=== PATIENT | male | born 1955 | race Caucasian/White ===

== ENCOUNTER 2022-12-15 05:55 | Day surgery (SDC) | payer MEDICARE ==
[2022-12-15] MEDS ORDERED: Lactated Ringers 1,000 ML IV SCH (06:30)
[2022-12-15] MEDS ORDERED: Versed 2 MG/2 ML Injection ONE (07:19)
[2022-12-15] MEDS ORDERED: Xylocaine-Mpf 2% 5 Ml Vial ONE (07:19)
[2022-12-15] MEDS ORDERED: DIPRIVAN 200 MG/20 ML IV ONE (07:19)
--- NOTE | 2022-12-15 08:21 | OP ---
SURGERY DATE/TIME: 12/15/2022 0731 PREOPERATIVE DIAGNOSIS: Screening exam. POSTOPERATIVE DIAGNOSIS: Multiple polyps in the cecum. PROCEDURE: Colonoscopy with hot polypectomy snare retrieval and removal of the polyps. SURGEON: Dr. Estrada. ANESTHESIA: MAC. Medications given by anesthesia department. HISTORY: The patient is a 67-year-old white male patient presenting now for screening colonoscopy. He was appraised of the risks of the procedure including the risk of perforation, phlebitis, untoward reaction to medication, bleeding and missed lesions. The patient verbalized his understanding and desired to have the procedure performed. DESCRIPTION OF PROCEDURE: The patient was given the medications by the anesthesia department. He had continuous pulse oximetry, ECG monitoring and intermittent blood pressure monitoring during the examination. He was placed in the left lateral decubitus position. A digital rectal examination was performed and revealed normal anal sphincter tone, no masses and a normal prostate. The flexible Olympus pediatric colonoscope was used to intubate the rectum. 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 They were removed using polyps with the snare and electrocautery for removal of the polyps and retrieval for pathologic evaluation. No other mucosal lesions were encountered. The scope was removed from the patient who tolerated the procedure well and was sent back to OP recovery in good condition. The prep was noted to be fair to good.
[2022-12-15 08:47] VITALS: BP 157/92; PULSE 52; O2SAT 99
== END 2022-12-15 08:50 | disposition home or self-care (01) ==
LOC: SDC 05:55
PROVIDERS: ATTEND Family Medicine
DX: Z12.11 Encounter for screening for malignant neoplasm of colon (principal); D12.0 Benign neoplasm of cecum; D12.3 Benign neoplasm of transverse colon
CPT/HCPCS: J2250; J2704

== ENCOUNTER 2023-12-31 05:51 | Day surgery (SDC) | payer MEDICARE ==
[2023-12-31 06:15] VITALS: RESP 16
[2023-12-31] MEDS: Lactated Ringers 1,000 ML IV SCH (06:46)
[2023-12-31] MEDS ORDERED: Xylocaine-Mpf 2% 5 Ml Vial ONE (07:58)
[2023-12-31] MEDS ORDERED: DIPRIVAN 200 MG/20 ML IV ONE ×2 (07:58→08:13)
[2023-12-31] MEDS ORDERED: ATROPINE SULFATE 1MG ONE (08:06)
--- NOTE | 2023-12-31 08:34 | OP ---
SURGERY DATE/TIME: 12/31/2023 0756 PREOPERATIVE DIAGNOSIS: History of colon polyps. POSTOPERATIVE DIAGNOSIS: Normal colon. PROCEDURE: Colonoscopy. SURGEON: Dr. Estrada. ANESTHESIA: Medications given by anesthesia department. HISTORY: The patient is a 68-year-old white male patient presenting now for evaluation due to having had multiple polyps on most recent examination. The patient was felt the need to have endoscopic evaluation. He was appraised of the risks of the procedure including the risk of perforation, phlebitis, untoward reaction to medication, bleeding and missed lesions. The patient verbalized his understanding and desired to have the procedure performed. DESCRIPTION OF PROCEDURE: The patient was given the medications by the anesthesia department. He had continuous pulse oximetry, ECG monitoring and intermittent blood pressure monitoring during the examination. He was placed in the left lateral decubitus position. A digital rectal examination was performed and revealed normal anal sphincter tone, no masses and a normal prostate. The flexible Olympus pediatric colonoscope was used to intubate the rectum. A view of the colon was developed sequentially to the cecum. Upon insertion and withdrawal, including a retroflex view in the rectum, no mucosal lesions were encountered. The scope was removed from the patient who tolerated the procedure well and was sent back to OP recovery in good condition. The prep was noted to be fair to good.
[2023-12-31 09:00] VITALS: BP 133/79; PULSE 68; TEMP 96.7; O2SAT 98
== END 2023-12-31 09:14 | disposition home or self-care (01) ==
LOC: SDC 05:51
PROVIDERS: ATTEND Family Medicine
DX: Z09 Encounter for follow-up examination after completed treatment for conditions other than malignant neoplasm (principal); Z86.010 Personal history of colon polyps
CPT/HCPCS: 93005; J0461; J2704